=== PATIENT | male | born 1980 | race Caucasian/White ===

== ENCOUNTER → 2017-07-01 | Outpatient (REF) ==
[~2017-07-01] MED LIST: MULT-1335 PO; PROM-100 PO
== END ==
LOC: AUD 08:30
PROVIDERS: ATTEND Nurse Practitioner Family
DX: Z01.10 Encounter for examination of ears and hearing without abnormal findings (principal)
CPT/HCPCS: 92552

== ENCOUNTER → 2018-06-16 | Outpatient (REF) ==
[~2018-06-16] MED LIST changes: +BUPR-124 PO; +FLUT16SP19 NS
== END ==
LOC: AUD 13:40
PROVIDERS: ATTEND Nurse Practitioner Family
DX: Z01.12 Encounter for hearing conservation and treatment (principal)
CPT/HCPCS: 92552

== ENCOUNTER → 2018-06-17 | Outpatient (CLI) | payer BC ==
--- NOTE | 2018-06-17 12:28 | RADIOLOGY IMAGING REPORT ---
FACILITY: [facility] PATIENT NAME: Shamar Watson : 1980 MR: [id number] V: [id number] EXAM DATE: ORDERING PHYSICIAN: JEANIE CHATTERJEE TECHNOLOGIST: Location: Patient: Shamar Watson : 1980 Visit/Account:[id number] Date of Sevice: 06/17/2018 EXAMINATION: CT sinus without IV contrast HISTORY: Acute, recurrent sinusitis. COMPARISON: None. TECHNIQUE: Contiguous axial images were obtained through the paranasal sinuses without intravenous c ontrast administration. Coronal and sagittal reformatted images were obtained from the axial source d shahid. One of the following dose optimization techniques was utilized in the performance of this exam: Autom ated exposure control; adjustment of the mA and/or kV according to the patient's size; or use of an i terative reconstruction technique. Specific details can be referenced in the facility's radiology C T exam operational policy. FINDINGS: Maxillary sinuses: Minimal mucosal thickening in the bilateral maxillary sinuses, left greater than r ight. Frontal sinuses: Negative. Ethmoid air cells: Minimal mucosal thickening in a few bilateral ethmoid air cells. Sphenoid sinuses: Minimal mucosal thickening in the left sphenoid sinus. Ostiomeatal units: Patent. Nasal septum/nasal cavity: Nasal septal deviation to the right causing moderate narrowing of the nasa l aperture. Orbits: Negative. Visualized intracranial contents/soft tissues: Negative. TMJs: Negative. IMPRESSION: 1. Mild nonobstructive inflammation of the bilateral maxillary sinuses, bilateral ethmoid air cells, and the left sphenoid sinus. 2. Nasal septal deviation to the right causing moderate narrowing of the right nasal aperture. Report Dictated By: Lauren Hansen MD at 06/17/2018 12:21 PM Report E-Signed By: Lauren Hansen MD at 06/17/2018 12:24 PM [id number]
== END ==
LOC: CT 02:05
PROVIDERS: ATTEND Nurse Practitioner Family
DX: J01.01 Acute recurrent maxillary sinusitis (principal); J01.21 Acute recurrent ethmoidal sinusitis; J01.31 Acute recurrent sphenoidal sinusitis; J34.2 Deviated nasal septum
CPT/HCPCS: 70486

== ENCOUNTER → 2018-07-25 | Outpatient (CLI) | payer BC ==
--- NOTE | 2018-07-25 16:41 | RADIOLOGY IMAGING REPORT ---
FACILITY: [facility] [place] PATIENT NAME: Shamar Watson : 1980 MR: [id number] V: [id number] EXAM DATE: ORDERING PHYSICIAN: JEANIE CHATTERJEE TECHNOLOGIST: Location: [facility] [place] Patient: Shamar Watson : 1980 Visit/Account:[id number] Date of Sevice: 07/25/2018 CHEST PA LAT HISTORY: Shortness of breath. COMPARISON: February 24, 2011. FINDINGS: Cardiomediastinal contours: The heart size is normal. Lungs and pleura: There is no finding of an infiltrate, lymphadenopathy or pleural effusion. Bones/soft tissues: There are no findings of a fracture. IMPRESSION: Normal chest x-ray without findings of acute disease. Report Dictated By: Jigar Cummings MD at 07/25/2018 4:35 PM Report E-Signed By: Jigar Cummings MD at 07/25/2018 4:35 PM WSN:[id number]
== END ==
LOC: RAD 16:00
PROVIDERS: ATTEND Nurse Practitioner Family
DX: J06.9 Acute upper respiratory infection, unspecified (principal)
CPT/HCPCS: 71046